=== PATIENT | male | born 1995 | race Caucasian/White ===

== ENCOUNTER 2016-06-17 20:31 | Emergency (ER) | payer OTHER ==
[~2016-06-17] VITALS: Ht 200.7 cm; Wt 136.4 kg
[2016-06-17 20:33] VITALS: BP 119/73; PULSE 77; RESP 16; O2SAT 98
--- NOTE | 2016-06-17 21:15 | DRSVH ---
PROCEDURE: X-RAY RIGHT FOOT COMPLETE, MINIMUM THREE VIEWS ([id number]) INDICATIONS: trauma TECHNIQUE: 3 views of the foot were acquired. COMPARISON: None. FINDINGS: Bones: No fractures or dislocations. No suspicious bony lesions. Soft tissues: No tibiotalar joint effusion. Achilles tendon appears normal. IMPRESSION: No acute radiographic findings. If pain persists, consider CT or MRI of the foot to evalu ate for occult fracture. Dictated by: Cristy Ball M.D. on 06/17/2016 at 21:12 Approved by: Cristy Ball M.D. on 06/17/2016 at 21:13
--- NOTE | 2016-06-17 22:57 | ED.REPORT ---
HPI-Extremity Problem Lower Date of Service Jun 17, 2016 ED Provider: Enrique Pelayo MD Patient is a 21 year old male who presents to the ED with right outer foot pain after hitting the side of his foot against his bed 2 weeks ago. He states that he first developed a bruise in this area, but that his pain became worse over time. Patient states that the pain is now radiating up his right leg and that he has decreased sensation on the outside of his foot. He reports difficulty ambulating. Patient has difficulty bearing weight on his leg and that he often collapses. The patient he has previously fractured this foot. Patient denies sustaining any other injuries. Nursing Notes Stated Complaint: RIGHT FOOT INJURY Chief Complaint: Extremity Trauma Nursing Notes Reviewed: Yes Allergies: Coded Allergies: No Known Allergies (Verified Allergy, Unknown, 06/17/16) General Time Seen by MD: 22:48 Chief Complaint Foot injury right Hx Obtained From: Patient Arrived By: Walk-in Onset Occurred: More than a week ago... (2 weeks) Symptom Duration: Since onset Location: : Foot right Quality: Painful Severity: Current: Moderate Severity: Maximum: Severe Recent Healthcare: No recent doctor visit, No recent hospitalization Similar Sx Previous: Yes Past Medical History Past Medical History previous right foot fracture Past Surgical History none reported Smoking History Unknown if Ever Smoker Social History Other Social History: Good social support, Local resident Ambulatory Status Independent Review of Systems Musculoskeletal: Reports: Extremity pain, Denies: Joint pain Neurologic: Reports: Numbness, Problem walking Complete sys rev & neg: except as marked. Hematologic: Reports Bruising, Denies Bleeding Physical Exam Initial Vital Signs Vital Signs (First) Date Time Temp Pulse Resp B/P Pulse Ox O2 Delivery O2 Flow Rate FiO2 06/17/16 20:33 36.2 77 16 119/73 98 Room Air Initial VS: Reviewed, Vital signs normal Head / Eyes: Atraumatic, Normocephalic, PERRL ENT: Conjunctiva normal, No scleral icterus Neck: Supple, Full range of motion Skin: Warm, Dry, No cyanosis Neurologic: Alert, Oriented, Nonfocal Psychiatric: Mood/affect normal, Behavior normal, Normal thought content Lower Extremity / Pelvis / MS: No swelling, No erythema, No deformity Ankle / Foot: No swelling, No erythema, No deformity Right Foot: Positive: Tenderness present... (tenderness along the lateral aspect of the foot, at the 5th metatarsel) General/Constitutional: Awake, Alert, No acute distress Respiratory / Chest: No respiratory distress, No stridor Cardiovascular: Heart rate NL, Cap refill not delayed, Peripheral circulation NL Interpretation & Diagnostics X-Ray Interpretation Xray Interpretation: IMPRESSION: No acute radiographic findings. If pain persists, consider CT or MRI of the foot to evaluate for occult fracture. Dictated by: Cristy Ball M.D. on 06/17/2016 at 21:12 Approved by: Cristy Ball M.D. on 06/17/2016 at 21:13 X-Ray Ordered: Foot right Interpretation / Wet Read by: Interpret - Radiologist Re-Eval/Medical Decision Med Decision/Clinical Course Blunt trauma to the side of his foot 2 weeks ago. Complains of continued pain. This is an area of a previous healed fracture. X-ray is negative. He is quite insistent that he needs narcotic pain medicines for this. There is no compelling physical exam evidence of injury. Tylenol and/or ibuprofen. He was fitted with a cast boot to reduced stress on this area with walking. Follow up with his regular doctor as needed Source of Hx: Old records Re-Evaluation/Progress : Time of Eval: 22:55 Re-Evaluation/Progress Note: Informed the patient that his x-ray was negative. If his symptoms persist, he will likely need an MRI of his foot. He will be given a walking boot and should stay off this foot for several weeks. Patient understands and agrees with the plan to be discharged home. Discharge instructions and follow-up discussed. All questions were addressed. Return to the ED warnings given. Counseled Regarding: Diagnosis, Need for follow-up, When/why to return to ED Discharge & Departure Impression: Primary Impression: Right foot pain Disposition: Home Discharge Condition All VS Reviewed: Yes Condition: No Change Patient Instructions: Foot Fracture in Adults (ED) Additional Instructions: The x-ray is now normal. There is no clear indication as to why the foot still hurts. Recommend that you wear a cast boot for the next 2 weeks and walk minimally. Tylenol and/or ibuprofen as needed for pain. Follow-up with [facility] in approximately 2 weeks for reevaluation and possible MRI. Referrals: [facility] Scribe Attestation Portions of this note were transcribed by Margaux Posey. I, Dr. Pelayo personally performed the history, physical exam and medical decision-making; I reviewed and confirmed the accuracy of the information in the transcribed note. Signed by: Garett Reddy, 06/17/2016 2317 Enrique Pelayo MD Jun 17, 2016 22:57 Margaux Posey Jun 17, 2016 23:03
[2016-06-17 23:42] VITALS: BP 119/73; PULSE 77; RESP 16; O2SAT 98
== END 2016-06-17 23:42 | disposition home or self-care (01) ==
LOC: SED 20:31
DX: M79.671 Pain in right foot (principal); W22.8XXA Striking against or struck by other objects, initial encounter; Y93.89 Activity, other specified; Y92.092 Bedroom in other non-institutional residence as the place of occurrence of the external cause; Y99.8 Other external cause status

== ENCOUNTER 2016-12-28 20:01 | Emergency (ER) | payer OTHER ==
[~2016-12-28] VITALS: Ht 200.7 cm; Wt 109.1 kg
[2016-12-28 20:20] VITALS: BP 123/81; PULSE 97; RESP 20; O2SAT 97
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
[2016-12-28] MEDS ORDERED: TdaP Vaccine 0.5 mL Inj IM ONE (22:45)
[2016-12-28] MEDS ORDERED: Ondansetron 8 mg ODT Tablet PO ONE (23:35)
[2016-12-29 00:21] VITALS: BP 127/84; PULSE 82; RESP 16; O2SAT 97
== END 2016-12-29 00:21 | disposition home or self-care (01) ==
LOC: SED 20:01
DX: S61.212A Laceration without foreign body of right middle finger without damage to nail, initial encounter (principal); S61.214A Laceration without foreign body of right ring finger without damage to nail, initial encounter; S61.216A Laceration without foreign body of right little finger without damage to nail, initial encounter; S61.011A Laceration without foreign body of right thumb without damage to nail, initial encounter; X99.1XXA Assault by knife, initial encounter; Y93.89 Activity, other specified; Y99.8 Other external cause status; Y92.89 Other specified places as the place of occurrence of the external cause; F12.10 Cannabis abuse, uncomplicated; F84.0 Autistic disorder; Z23 Encounter for immunization